=== PATIENT | male | born 1990 | race Caucasian/White ===

== ENCOUNTER → 2019-03-05 09:27 | Outpatient (CLI) | payer SELFPAY ==
--- NOTE | 2019-03-05 09:38 | DI.RAD.S_ITS ---
PROCEDURE: XR CHEST 2V INDICATIONS: congestion TECHNIQUE: 2 views of the chest were acquired. COMPARISON: None. FINDINGS: Surgical changes and devices: None. Lungs and pleura: Lungs are clear. No pleural effusions or pneumothorax. Mediastinum: Mediastinal contours are normal. Heart size is normal. Bones and chest wall: No suspicious bony abnormalities. Soft tissues appear unremarkable. IMPRESSION: Normal chest plain films, without infiltrates. Dictated by: Mitchell Gallegos M.D. on 03/05/2019 at 9:01 Approved by: Mitchell Gallegos M.D. on 03/05/2019 at 9:01
== END ==
PROVIDERS: Visit Provider Physician Assistant
DX: R09.81 Nasal congestion (principal); R05 Cough
CPT/HCPCS: 71046

== ENCOUNTER 2020-02-22 12:20 | Emergency (ER) | payer MEDICAID, SELFPAY ==
--- NOTE | 2020-02-22 12:28 | PC.NURSE ---
went to triage at 1224. Pt not in waiting room. In Bathroom. Asked friend to send him to registration / triage area when he is out.
[2020-02-22 12:30] VITALS: BP 155/94; PULSE 109; RESP 20; TEMP 36.6; O2SAT 98; BMI 29.5
--- NOTE | 2020-02-22 12:36 | DI.RAD.S_ITS ---
PROCEDURE: XR KNEE RT 3V INDICATIONS: atraumatic right knee pain / swelling / redness. TECHNIQUE: 3 views of the knee were acquired. COMPARISON: None. FINDINGS: Bones: No fractures or dislocations. No suspicious bony lesions. Mild lateral patellar tilt Soft tissues: No joint effusion. No suspicious soft tissue calcifications. Anterior soft tissue swelling. IMPRESSION: Anterior soft tissue swelling No fracture. If the patient's symptoms do not improve recommend followup radiographs in 10 days to assess for healing sclerosis/occult injury. Or, consider further evaluation with MRI Dictated by: Pito Reyna M.D. on 02/22/2020 at 13:33 Approved by: Pito Reyna M.D. on 02/22/2020 at 13:34
[2020-02-22] MEDS: KETOROLAC 60 MG/2 ML VIAL 30 MG IV (12:51)
[2020-02-22 13:02] LABS: Add Manual Diff / Slide Review NO; Basophils Absolute Auto 0 /uL (0-100); Basophils Percent Auto 0.4 % (0-2); Eosinophils Absolute Auto 200 /uL (0-450); Eosinophils Percent Auto 1.9 % (2-4); Hematocrit 44.4 % (41-53); Hemoglobin 15.4 g/dL (13.5-17.5); Lymphocytes Absolute Auto 1400 /uL (1100-4500); Lymphocytes Percent Auto 12.5 % (25-40); Mean Corpuscular HGB Conc 34.7 % (30-36); Mean Corpuscular Hemoglobin 33.4 PG (26-34); Mean Corpuscular Volume 96.2 fL (80-100); Monocytes Absolute Auto 1000 /uL (0-900); Monocytes Percent Auto 9.2 % (3-14); Neutrophils Absolute Auto 8300 /uL (1500-7000); Platelet Count 188 X10^3/uL (150-400); Red Blood Cell Count 4.62 X10^6/uL (4.5-5.9); Red Cell Distribution Width 12.7 % (11.6-14.8); White Blood Cell Count 10.9 X10^3/uL (4.5-11.0)
[2020-02-22 13:06] LABS: Prothrombin Time 11.5 SECONDS (10.1-12.7)
[2020-02-22 13:09] LABS: PTT Partial Thromboplastin Tim 32 SECONDS (26.4-36.2)
[2020-02-22 13:10] LABS: Lactate (Lactic Acid) 1.1 mmol/L (0.7-2.1)
[2020-02-22 13:13] LABS: Alanine Aminotransferase 94 IU/L (<50); Albumin 4.9 g/dL (3.5-5.0); Albumin Globulin Ratio 1.3 (1.0-2.8); Alkaline Phosphatase 66 U/L (38-126); Aspartate Aminotransferase 54 IU/L (17-59); BUN Creatinine Ratio 10.9 (6-22); Bilirubin Total 1.7 mg/dL (0.2-1.3); Blood Urea Nitrogen 10 mg/dL (9-20); Calcium 9.5 mg/dL (8.4-10.2); Carbon Dioxide 27 mmol/L (22-32); Chloride 102 mmol/L (98-107); Estimated Glomerular Filt Rate > 60.0 mL/min (>60); Globulin 3.9 g/dL (1.7-4.1); Glucose 94 mg/dL (70-100); HEMOLYSIS < 15 (0-50); Lipase 184 U/L (23-300); Potassium 4.1 mmol/L (3.4-5.1); Sodium 138 mmol/L (137-145); Total Protein 8.8 g/dL (6.3-8.2)
[2020-02-22 13:24] LABS: C-Reactive Protein Quant 15.8 mg/dL (<1.0)
[2020-02-22 13:26] LABS: Procalcitonin < 0.05 ng/mL (<0.5)
[2020-02-22 13:27] LABS: Erythrocyte Sedimentation Rate 22 MM/HR (0-15)
[2020-02-22 13:28] LABS: Uric Acid 6.6 mg/dL (3.5-8.5)
--- NOTE | 2020-02-22 13:56 | ED.LOWEXIN ---
HPI - Extremity Injury (Lower) General Chief Complaint: Extremity Injury, Lower Stated Complaint: right knee, thinks is infected Time Seen by Provider: 02/22/20 13:56 Source: patient Mode of arrival: Ambulatory Limitations: no limitations History of Present Illness HPI Narrative: The patient awoke with right knee pain 2 days ago. He was well when he went to bed. 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 He has no history of gout or other versions arthritis. He has pain right knee when walking. There is redness and swelling to the site, he has never had an issue like that before. He has no fever. There is no drainage from the area around the right knee. He has no numbness or weakness and right leg. He is not diabetic. He does take omeprazole as needed for epigastric pain, presumed gastritis or ulcer. He does chew tobacco. He has no other medical problems. Related Data Home Medications Medication Instructions Recorded Confirmed omeprazole magnesium 20 mg 20 mg PO DAILY 03/14/19 02/22/20 tablet,delayed release Previous Rx's Medication Instructions Recorded hydrocodone-acetaminophen [[place]] 1 tab PO Q4-6H PRN #10 tab 02/22/20 prednisone 60 mg PO DAILY 5 Days #15 tab 02/22/20 Allergies Allergy/AdvReac Type Severity Reaction Status Date / Time No Known Drug Allergies Allergy Verified 02/22/20 12:35 Review of Systems Review of Systems ROS Unobtainable: All systems reviewed & are unremarkable except as noted in HPI and below Constitutional Constitutional: Denies chills, Denies fever(s) and Denies weakness Cardiovascular Cardiovascular: Denies chest pain, Denies irregular heart rhythm, Denies lightheadedness and Denies dyspnea Respiratory Respiratory: Denies cough, Denies dyspnea and Denies wheezing Gastrointestinal Gastrointestinal: Denies abdominal pain and Denies change in bowel habits Comments: Remote history of GI bleed. Musculoskeletal Comments: Right knee pain and swelling. Integumentary/Breasts Comments: Right knee erythema. No chronic rash. Neurologic Neurologic: Denies weakness Allergic/Immunologic Allergic/Immunologic: Denies wheezing Patient History Medical History (Updated 02/22/20 @ 16:21 by Lm Corrales MD) History of GI bleed (Inactive 2012) Social History Smoking Status: Former smoker Tobacco: How many years used: 6 Smokeless tobacco user: chewing tobacco (1 can/week) second hand exposure: No alcohol intake: current (6 beers/day) substance use type: does not use Smoking Status: Former smoker alcohol intake frequency: 3 or more drinks per day Substance Use Type: does not use Exam Initial Vital Signs Initial Vital Signs: Vital Signs Temperature 97.8 F 02/22/20 12:30 Pulse Rate 109 H 02/22/20 12:30 Respiratory Rate 20 02/22/20 12:30 Blood Pressure 155/94 H 02/22/20 12:30 Pulse Oximetry 98 02/22/20 12:30 Const General: healthy appearing, comfortable and well developed Skin General: no rashes or lesions noted, No jaundice and No petechiae Other: No chronic skin rashes, erythema over the right patella with edema. There been edema projects distally to the prepatellar region. Neuro General: patient alert, patient oriented x3, gait normal and no focal motor deficits Speech: speech normal Extrem General: full ROM, no clubbing, cyanosis or edema, no pedal edema and no calf tenderness Other: Right knee shows range of motion 0-90 degrees, he has pain with full flexion. There is edema over the right patella and inferior to the patella. He has erythema along the same distribution. There is no erythema to the medial and lateral portions of the patella. There is no knee laxity, or crepitus. There is no inflammatory changes above or below the knee. The right foot is neurovascularly intact. Psych Mental Status: mental status grossly normal Course Course Course Narrative: The case was discussed with Dr. Ritchie, orthopedics. He clearly has an inflammatory process, likely prepatellar bursitis. He has improved mildly with Toradol. Labs would not suggest infection. Is sided treated with anti-inflammatories, I gave him Toradol and prednisone. Due to his past GI history, he will not be prescribed NSAIDs. He will be discharged with prednisone and [place] available. He is advised follow-up with Dr. Ritchie next week, but return here if necessary. Orders Ordered: ED Orders 02/22/20 12:36 XR knee RT 3V Stat 02/22/20 12:45 C-Reactive Protein Quant Stat Complete Blood Count AUTO DIFF Stat Comprehensive Metabolic Panel Stat Erythrocyte Sedimentation Rate Stat Lactate (Lactic Acid) Stat Lipase Stat Partial Thromboplastin Time Stat Procalcitonin Stat Prothrombin Time INR Stat Uric Acid Stat Discontinued Medications Ketorolac Tromethamine (Toradol) 30 mg IV NOW ONE Stop: 02/22/20 12:50 Last Admin: 02/22/20 12:51 Dose: 30 mg Documented by: [place] Ketorolac Tromethamine (Toradol) 30 mg IV NOW ONE Stop: 02/22/20 14:21 Last Admin: 02/22/20 14:49 Dose: Not Given Documented by: GEOFFREY Prednisone (Deltasone) 60 mg PO NOW ONE Stop: 02/22/20 16:05 Last Admin: 02/22/20 16:15 Dose: 60 mg Documented by: RIGO Vital Signs Vital signs: Vital Signs - 8 hr 02/22/20 12:30 02/22/20 16:15 Temperature 97.8 F Pulse Rate 109 H 92 H Respiratory Rate 20 14 Blood Pressure 155/94 H 166/91 H Pulse Oximetry 98 97 MDM - Extremity Injury (Lower) Lab Data Result diagrams: 02/22/20 12:45 02/22/20 12:45 Labs: Lab Results 02/22/20 02/22/20 02/22/20 Range/Units 12:45 12:45 12:45 WBC 10.9 (4.5-11.0) X10^3/uL RBC 4.62 (4.5-5.9) X10^6/uL Hgb 15.4 (13.5-17.5) g/dL Hct 44.4 (41-53) % MCV 96.2 (80-100) fL MCH 33.4 (26-34) PG MCHC 34.7 (30-36) % RDW 12.7 (11.6-14.8) % Plt Count 188 (150-400) X10^3/uL Neut % (Auto) 76.0 H (50-75) % Lymph % (Auto) 12.5 L (25-40) % [place] % (Auto) 9.2 (3-14) % Eos % (Auto) 1.9 L (2-4) % Baso % (Auto) 0.4 (0-2) % Neut # (Auto) 8300 H (3611-0403) /uL Lymph # (Auto) 1400 (7636-2255) /uL [place] # (Auto) 1000 H (0-900) /uL Eos # (Auto) 200 (0-450) /uL Baso # (Auto) 0 (0-100) /uL ESR 22 H (0-15) MM/HR PT 11.5 (10.1-12.7) SECONDS INR 1.0 (0.9-1.3) APTT 32 (26.4-36.2) SECONDS Sodium (137-145) mmol/L Potassium (3.4-5.1) mmol/L Chloride (98-107) mmol/L Carbon Dioxide (22-32) mmol/L BUN (9-20) mg/dL Creatinine (0.66-1.25) mg/dL Estimated GFR (>60) mL/min BUN/Creatinine Ratio (6-22) Glucose (70-100) mg/dL Lactate (0.7-2.1) mmol/L Uric Acid (3.5-8.5) mg/dL Calcium (8.4-10.2) mg/dL Total Bilirubin (0.2-1.3) mg/dL AST (17-59) IU/L ALT (<50) IU/L Alkaline Phosphatase (38-126) U/L C-Reactive Protein (<1.0) mg/dL Total Protein (6.3-8.2) g/dL Albumin (3.5-5.0) g/dL Globulin (1.7-4.1) g/dL Albumin/Globulin Ratio (1.0-2.8) Lipase (23-300) U/L Procalcitonin < 0.05 (<0.5) ng/mL 02/22/20 02/22/20 02/22/20 Range/Units 12:45 12:45 12:45 WBC (4.5-11.0) X10^3/uL RBC (4.5-5.9) X10^6/uL Hgb (13.5-17.5) g/dL Hct (41-53) % MCV (80-100) fL MCH (26-34) PG MCHC (30-36) % RDW (11.6-14.8) % Plt Count (150-400) X10^3/uL Neut % (Auto) (50-75) % Lymph % (Auto) (25-40) % [place] % (Auto) (3-14) % Eos % (Auto) (2-4) % Baso % (Auto) (0-2) % Neut # (Auto) (4867-1620) /uL Lymph # (Auto) (8169-6077) /uL [place] # (Auto) (0-900) /uL Eos # (Auto) (0-450) /uL Baso # (Auto) (0-100) /uL ESR (0-15) MM/HR PT (10.1-12.7) SECONDS INR (0.9-1.3) APTT (26.4-36.2) SECONDS Sodium 138 (137-145) mmol/L Potassium 4.1 (3.4-5.1) mmol/L Chloride 102 (98-107) mmol/L Carbon Dioxide 27 (22-32) mmol/L BUN 10 (9-20) mg/dL Creatinine 0.92 (0.66-1.25) mg/dL Estimated GFR > 60.0 (>60) mL/min BUN/Creatinine Ratio 10.9 (6-22) Glucose 94 (70-100) mg/dL Lactate 1.1 (0.7-2.1) mmol/L Uric Acid 6.6 (3.5-8.5) mg/dL Calcium 9.5 (8.4-10.2) mg/dL Total Bilirubin 1.7 H (0.2-1.3) mg/dL AST 54 (17-59) IU/L ALT 94 H (<50) IU/L Alkaline Phosphatase 66 (38-126) U/L C-Reactive Protein 15.8 H (<1.0) mg/dL Total Protein 8.8 H (6.3-8.2) g/dL Albumin 4.9 (3.5-5.0) g/dL Globulin 3.9 (1.7-4.1) g/dL Albumin/Globulin Ratio 1.3 (1.0-2.8) Lipase 184 (23-300) U/L Procalcitonin (<0.5) ng/mL Imaging Data Right knee x-ray: Radiologist's Impression: [address] [address] XRay Report Signed Patient: Issac Perkins#: [id number] : 1990Acct:[id number] Age/Sex: 29 / MDate of Service: 02/22/20 Loc: ED Accession Number: [id number] Procedure: XR knee RT 3V Ordering Provider: Lm Corrales MD PROCEDURE: XR KNEE RT 3V INDICATIONS: atraumatic right knee pain / swelling / redness. TECHNIQUE: 3 views of the knee were acquired. COMPARISON: None. FINDINGS: Bones: No fractures or dislocations. No suspicious bony lesions. Mild lateral patellar tilt Soft tissues: No joint effusion. No suspicious soft tissue calcifications. Anterior soft tissue swelling. IMPRESSION: Anterior soft tissue swelling No fracture. If the patient's symptoms do not improve recommend followup radiographs in 10 days to assess for healing sclerosis/occult injury. Or, consider further evaluation with MRI Dictated by: Pito Reyna M.D. on 02/22/2020 at 13:33 Approved by: Pito Reyna M.D. on 02/22/2020 at 13:34 Discharge Plan Departure Patient Disposition: Home Clinical Impression: Bursitis, prepatellar, right Discharge Date/Time: 02/22/20 16:25 Instructions: Bursitis Activity Restrictions/Additional Instructions: Prednisone 60 mg daily for the next 5 days. [place] every 4 hours as needed for added pain control. Follow-up with Dr. Ritchie, call Tuesday for an appointment. Return here for increasing pain, increased redness, or fever. Prescriptions: New prednisone 20 mg tablet 60 mg PO DAILY 5 Days Qty: 15 RF: 0 hydrocodone-acetaminophen [[place]] 5-325 mg tablet 1 tab PO Q4-6H PRN (Reason: pain) Qty: 10 RF: 0 No Action Prilosec OTC 20 mg tablet,delayed release (DR/EC) 20 mg PO DAILY RF: 0 Referrals: July Ritchie MD [Physician] - Boni Reddy ARNP [Primary Care Provider] - Lm Corrales MD [Emergency Provider] - Stand Alone Forms: Work Release Note
--- NOTE | 2020-02-22 14:07 | PC.NURSE ---
at bedside for eval
[2020-02-22 16:15] VITALS: BP 166/91; PULSE 92; RESP 14; O2SAT 97
[2020-02-22] MEDS: predniSONE 20 MG TABLET 60 MG PO (16:15)
== END 2020-02-22 16:25 | disposition home or self-care (01) ==
PROVIDERS: Nurse Practitioner Family; Emergency Provider Emergency Medicine; PCP Nurse Practitioner Family; Referring Provider Nurse Practitioner Family
DX: M70.41 Prepatellar bursitis, right knee (principal)
CPT/HCPCS: 36415; 73562; 80053; 83605; 83690; 84145; 84550; 85025; 85610; 85651; 85730; 86140; 96374; 99284; J1885